=== PATIENT | male | born 1950 | race Two or more races ===

== ENCOUNTER 2017-07-22 12:23 | Emergency (ER) | payer OTHER ==
[2017-07-22 12:31] VITALS: BP 144/80; PULSE 66; TEMP 98; BMI 30.8
[2017-07-22] MEDS ORDERED: DIPHTH,PERTUSS(ACELL),TET 0.5 ML DISP.SYRIN IM ONE (13:57)
--- NOTE | 2017-07-22 14:03 | PDOC ---
History of Present Illness - General Chief Complaint: Injury Stated Complaint: INURY AT WORK Time Seen by Provider: 07/22/17 13:19 History Source: Patient Exam Limitations: No Limitations - History of Present Illness Initial Comments: 07/22/17 13:56 Patient is a [66-year-old male with history of hypertension on metoprolol. Was at work and was throwing a large metal object into a high blood in it hit the side of the metal bin and bounced back and hit him in the face he sustained an avulsion laceration to right lateral forehead and bridge of nose. Denies any LOC , no visual disturbance, no eye pain. No headache. Tetanus is not up-to-date.] Allergies: No known allergies Family History: Non-contributory Social History: Denies smoking, alcohol use, or IVDU Vital signs on arrival are [notable for pulse of 96.] Review of Systems GENERAL/CONSTITUTIONAL: [No fever or chills. No weakness. No weight change.] HEAD, EYES, EARS, NOSE AND THROAT: [No change in vision. No ear pain or discharge. No sore throat. ] CARDIOVASCULAR: [No chest pain or shortness of breath.] RESPIRATORY: [No cough, wheezing, or hemoptysis.] GASTROINTESTINAL: [No nausea, vomiting, diarrhea or constipation. No rectal bleeding.] GENITOURINARY: [No dysuria, frequency, or change in urination.] MUSCULOSKELETAL: [No joint or muscle swelling or pain. No neck or back pain.] SKIN : [No rash or easy bruising. 4 centimeters skin avulsion to right lateral forehead superficial abrasion to bridge of nose] NEUROLOGIC: [No headache, vertigo, loss of consciousness, or loss of sensation.] PSYCHIATRIC: [No depression or anxiety.] ENDOCRINE: [No increased thirst. No abnormal weight change.] HEMATOLOGIC/LYMPHATIC: [No anemia, easy bleeding, or history of blood clots.] ALLERGIC/IMMUNOLOGIC: [No hives or skin allergy. No latex allergy.] Physical Exam: GENERAL: [The patient is awake, alert, and fully oriented, in no acute distress. ] HEAD: [Normal with no signs of trauma.] EYES: [Pupils equal, round and reactive to light, extraocular movements intact, sclera anicteric, conjunctiva clear.] ENT: [Ears normal, nares patent, oropharynx clear without exudates. Moist mucous membranes. No uvula deviation] NECK: [Normal range of motion, supple without lymphadenopathy, JVD, or masses.] LUNGS: [Breath sounds equal, clear to auscultation bilaterally. No wheezes, and no crackles.] HEART: [Regular rate and rhythm, normal S1 and S2 without murmur, rub or gallop. ] ABDOMEN: [Soft, nontender, normoactive bowel sounds. No guarding, no rebound. No masses. No bruising or abrasions] MUSCULOSKELETAL: [Normal range of motion, no edema. No clubbing or cyanosis. No cords, erythema, or tenderness. No CVA Tenderness with fist.] NEUROLOGICAL: [Cranial nerves II through XII grossly intact. Normal speech, normal gait.] SKIN: [Warm, Dry, normal turgor, no rashes or lesions noted. 4 cm laceration, avulsion to right lateral forehead with bruised skin borders, Small palpable hematoma. No crepitus, stepoffs or fluctuance noted. ] Past History - Past Medical History Allergies/Adverse Reactions: Allergies Allergy/AdvReac Type Severity Reaction Status Date / Time No Known Allergies Allergy Verified 07/22/17 12:28 Home Medications: Ambulatory Orders Metoprolol Succinate [Toprol Xl -] 50 mg PO DAILY 07/22/17 COPD: No Thyroid Disease: No - Suicide/Smoking/Psychosocial Hx Smoking History: Never smoked Have you smoked in the past 12 months: No Information on smoking cessation initiated: No Hx Alcohol Use: No Drug/Substance Use Hx: No Substance Use Type: None *Physical Exam - Vital Signs Last Vital Signs Temp Pulse Resp BP Pulse Ox 98 F 66 14 144/80 100 07/22/17 12:28 07/22/17 12:28 07/22/17 12:28 07/22/17 12:28 07/22/17 12:28 Procedures - Laceration/Wound Repair Right Lateral Face Wound Length: 2.6 to 5.0 cm Wound Explored: clean Wound's Depth, Shape: irregular, flap, contused tissue Irrigated w/ Saline: Yes Betadine Prep: Yes Anesthesia: 1% Lidocaine Amount of Anesthetic (ccs): 3 Wound Debrided: minimal Wound Repaired With: Sutures Suture Size/Type: 6:0 Number of Sutures: 7 Layer Closure: No Medical Decision Making - Medical Decision Making 07/22/17 14:03 A/P:Patient here for evaluation after being hit in the face by a metal object no LOC, there is abrasion noted to the bridge of the nose and a of falls laceration to right lateral forehead with contused borders. Area cleansed with normal saline, 1% lidocaine infused with good result contused borders were manually removed using surgical scissors. Area was able to be well approximated and pulled together using a 6-0 suture. Steri-Strips placed on for stability and ice placed to area. Proper care instructions given to patient he should return in one week for suture removal *DC/Admit/Observation/Transfer Diagnosis at time of Disposition: Facial laceration Qualifiers: Encounter type: initial encounter Qualified Code(s): S01.81XA - Laceration without foreign body of other part of head, initial encounter Nose abrasion Qualifiers: Encounter type: initial encounter Qualified Code(s): S00.31XA - Abrasion of nose, initial encounter - Discharge Dispostion Disposition: HOME Condition at time of disposition: Stable Admit: No - Referrals - Patient Instructions Additional Instructions: If any headache, nausea vomiting, visual disturbance, or any other concerns return to ER Please keep Steri-Strips on until they fall off on their own please return on either Thursday or Thursday of next week for suture removal. If any increased redness, swelling, signs of infection return to ER - Post Discharge Activity Forms/Work/School Notes: Back to Work
== END 2017-07-22 14:37 | disposition home or self-care (01) ==
LOC: JERFT 12:23
PROC: 3E0234Z Introduction of Serum, Toxoid and Vaccine into Muscle, Percutaneous Approach (ICD-10-PCS; principal; 2017-07-22)
PROC: 0HQ1XZZ Repair Face Skin, External Approach (ICD-10-PCS; 2017-07-22)
DX: S01.81XA Laceration without foreign body of other part of head, initial encounter (principal); W20.8XXA Other cause of strike by thrown, projected or falling object, initial encounter; Y93.89 Activity, other specified; Y92.9 Unspecified place or not applicable; Y99.0 Civilian activity done for income or pay; I10 Essential (primary) hypertension
CPT/HCPCS: 90715; 99281-25

== ENCOUNTER 2017-07-28 14:21 | Emergency (ER) | payer OTHER ==
[2017-07-28 14:33] VITALS: BP 136/78; PULSE 78; TEMP 98.6; BMI 30.8
--- NOTE | 2017-07-28 14:37 | PDOC ---
Suture Removal/Wound Check HPI - History of Present Illness Stated Complaint: Suture/Staple Removal(Here) Time Seen by Provider: 07/28/17 14:30 History Source: Yes: Patient Past History - Travel Traveled outside of the country in the last 30 days: No - Past Medical History Allergies/Adverse Reactions: Allergies Allergy/AdvReac Type Severity Reaction Status Date / Time No Known Allergies Allergy Verified 07/28/17 14:31 Home Medications: Ambulatory Orders Metoprolol Succinate [Toprol Xl -] 50 mg PO DAILY 07/22/17 COPD: No Thyroid Disease: No Other medical history: sleep apnea - Immunization History Immunization Up to Date: Yes - Suicide/Smoking/Psychosocial Hx Smoking History: Never smoked Have you smoked in the past 12 months: No Hx Alcohol Use: No Drug/Substance Use Hx: No Substance Use Type: None Suture Removal/Wound Check PE - Physical Exam Laceration/Wound Check Symptoms: reports: None Current Severity Level: None *Review of Systems - Review of Systems Constitutional: No: Chills, Fever HEENTM: No: Eye Pain, Blurred Vision, Recent change in vision Medical Decision Making - Medical Decision Making 07/28/17 15:00 Removal of 7 right lateral forehead sutures placed 07/22. Bacitracin and sterile dressing applied. Return precautions reviewed. *DC/Admit/Observation/Transfer Diagnosis at time of Disposition: Visit for suture removal - Discharge Dispostion Disposition: HOME Condition at time of disposition: Good Admit: No - Referrals - Patient Instructions Printed Discharge Instructions: DI for Suture Removal - Post Discharge Activity
== END 2017-07-28 15:39 | disposition home or self-care (01) ==
LOC: JERFT 14:21
DX: Z48.02 Encounter for removal of sutures (principal)
CPT/HCPCS: 99281-25